=== PATIENT | female | born 1945 | race Caucasian/White ===

== ENCOUNTER → 2016-07-06 | Outpatient (CLI) | payer OTHER | LOC: BHFA 15:00 | PROVIDERS: ATTEND Internal Medicine Interventional Cardiology | DX: I25.10 Atherosclerotic heart disease of native coronary artery without angina pectoris (principal) ==

== ENCOUNTER → 2016-07-12 | Outpatient (CLI) | payer OTHER | LOC: BHFA 11:30 | PROVIDERS: ATTEND Internal Medicine Interventional Cardiology | DX: I25.10 Atherosclerotic heart disease of native coronary artery without angina pectoris (principal) ==

== ENCOUNTER 2017-02-02 02:22 | Observation (INO) | payer OTHER ==
[2017-02-02] MEDS ORDERED: NS 500 ML IV ONE (02:37)
[2017-02-02] MEDS ORDERED: ASPIRIN 81 MG CHEWABLE TAB PO ONE (02:37)
--- NOTE | 2017-02-02 02:41 | CPEKG ---
Heart Rate: 47 RR Interval: 1277 P-R Interval: 176 QRSD Interval: 90 QT Interval: 476 QTC Interval: 421 P Ather[place]: 71 QRS [place]: 54 T Wave A[place]: 5 EKG Severity - ABNORMAL ECG - EKG Impression: SINUS BRADYCARDIA EKG Impression: PROBABLE LEFT ATRIAL ABNORMALITY EKG Impression: ABNORMAL T, CONSIDER ISCHEMIA, ANT-LAT LEADS Electronically Signed By: Aris Alexandre 04-Feb-2017 13:56:53
[2017-02-02] MEDS ORDERED: HYDROmorphONE/DILAUDID 1 MG/ML INJ IVP ONE (02:45)
--- NOTE | 2017-02-02 02:46 | EDPHY ---
H & P Stated Complaint: c/o severe R lower back pain, concerned cardiac related HPI/ROS: HPI CHIEF COMPLAINT: Severe right low back pain. HISTORY OF PRESENT ILLNESS: This patient very pleasant 71-year-old female she presents emergency room with right fall are low lateral back pain that is described as sharp stabbing. There is no midline back pain. She denies any chest pain or shortness of breath. Denies nausea. Pain is located right CVA region. She states she was sleeping and woke up at 1:00 a.m. with severe pain sharp stabbing it does radiate a little bit around her right CVA to right abdomen. Does not go down her leg. She has no saddle anesthesia. No fever. No trauma. No midline lumbar pain. She denies any urinary symptoms. She decided come to the emergency room as she was concerned this may be cardiac related cause her history is cardiac in nature and she has 2 stents in her LAD. With both stent placed she did have some chest discomfort. She never had low back pain with that. Upon arrival to the emergency room her only complaint is right CVA pain sharp stabbing radiates to her right abdomen. Past Medical History: Coronary artery disease with 2 stents. Past Surgical History: PTCA. Social History: Denies drugs alcohol tobacco. Family History: Noncontributory. ROS REVIEW OF SYSTEMS: A comprehensive 10 point review of systems is otherwise negative aside from elements mentioned in the history of present illness. Exam Constitutional appears uncomfortable, triage nursing summary reviewed, vital signs reviewed, awake/alert. Vital signs reviewed. Bradycardic. Eyes normal conjunctivae and sclera, EOMI, PERRLA. HENT normal inspection, atraumatic, moist mucus membranes, no epistaxis, neck supple/ no meningismus, no raccoon eyes. Respiratory clear to auscultation bilaterally, normal breath sounds, no respiratory distress, no wheezing. Cardiovascular bradycardic, regular rhythm, no murmur, no edema, distal pulses normal. Gastrointestinal soft, non-tender, no rebound, no guarding, normal bowel sounds, no distension, no pulsatile mass. Genitourinary no significant right CVA tenderness but this is where she has pain. Musculoskeletal no midline vertebral tenderness, full range of motion, no calf swelling, no tenderness of extremities, no meningismus, good pulses, neurovascularly intact. Skin pink, warm, & dry, no rash, skin atraumatic. Neurologic awake, alert and oriented x 3, AAOx3, moves all 4 extremities equally, motor intact, sensory intact, CN II-XII intact, normal cerebellar, normal vision, normal speech. Psychiatric normal mood/affect. Heme/Lymph/Immune no lymphadenopathy. Differential Diagnosis: Includes but is not limited to in a particular order, UTI, hydronephrosis, hydroureter, kidney stone, pyelonephritis, disc herniation , annular tear, compression fracture, nerve root compression. Aortic dissection. Doubt acute coronary syndrome. 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 Check urinalysis for blood. CT scan abdomen pelvis without contrast to delineate this right low flank pain. Abdominal labs. Gentle IV hydration and re- evaluation. Re-evaluation: EKG interpretation by me on record in TRAN.SL system. Impression time of EKG 2:27 a.m., this is sinus bradycardic rate of 47 subtle T-wave abnormality inferior leads to 3 AVF deep T-wave inversions V4 V5 V6. T-wave flattening in the lateral leads 1 aVL. When I compare this EKG to her old EKG dated 1 I compare this to EKG dated 02/25/2010 very similar morphology. I do not appreciate acute new changes on this EKG today. 0508: This patient CT scan without contrast shows a 2.5 mm kidney stone at the right UVJ. Shows severe hydronephrosis also rupture of the renal Pelvis. UROMA. 0508: At this time I did re-evaluate she somewhat comfortable but does have nausea and some mild back pain. Given her age, cardiac risk factors, ongoing flank pain with nausea severe hydronephrosis with an obstructing distal stone I do recommend that she gets admitted to the hospital for pain control nausea control and for Urology to consult. Additionally her urinalysis is not clean I have low suspicion for infection but I have ordered her urine culture and IV Rocephin in case this is infected. Will admit to the hospitalist service. 0517: I have consult Urology Dr. Abrams. She will see in consult the patient. 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 psh- cardiac stent 2006, hernia surg, bilat wrist surg, surg L thumb x 2, surg L knee - Social History Smoking Status: Never smoked Constitutional: Initial Vital Signs Heart Rate 48 L 02/02/17 02:24 Respiratory Rate 18 02/02/17 02:24 Blood Pressure 163/96 H 02/02/17 02:24 O2 Sat (%) 95 02/02/17 02:24 O2 Delivery Mode Room Air Allergies/Adverse Reactions: No Known Allergies Allergy (Verified 02/02/17 02:31) Home Medications: Medication Instructions Recorded Alirocumab [Praluent Pen] 75 mg SQ Q14D 02/02/17 Aspirin [Aspirin 81mg (*)] 81 mg PO HS 02/02/17 Carvedilol Cr [Coreg Cr] 10 mg PO HS 02/02/17 Denosumab [Prolia] 60 mg SQ .H5IAMIES 02/02/17 Ezetimibe [Zetia 10 MG (*)] 10 mg PO HS 02/02/17 Herbals/Supplements -Info Only 1 ea PO DAILY 02/02/17 Multivitamins [Multivitamin (*)] 1 each PO DAILY 02/02/17 [place]-3 Fatty Acids [Fish Oil 1000 1,000 mg PO HS 02/02/17 mg (*)] Ramipril [Altace 5mg (*)] 5 mg PO DAILY 02/02/17 Rosuvastatin Calcium [Crestor 40mg 40 mg PO HS 02/02/17 (*)] Tamsulosin HCl [Flomax 0.4 MG (*)] 0.4 mg PO DAILY #30 cap 02/02/17 Ticagrelor [Brilinta] 90 mg PO BID 02/02/17 cycloSPORINE 0.05% [Restasis Opht 1 drop EACHEYE BID 02/02/17 Drops(*)] Medical Decision Making - Data Points Laboratory Results: Laboratory Results 02/02/17 02:30 02/02/17 02:30 Microbiology Results: MICROBIOLOGY 02/02/17 02:50 Urine,Clean Catch Urine Culture - Preliminary Three [place] Types Medications Given: Discontinued Medications Aspirin (Aspirin) 324 mg PO EDNOW ONE Stop: 02/02/17 02:38 Last Admin: 02/02/17 03:19 Dose: Not Given Hydromorphone HCl (Dilaudid) 1 mg IVP EDNOW ONE Stop: 02/02/17 02:46 Last Admin: 02/02/17 02:57 Dose: 1 mg Sodium Chloride (Ns) 500 mls @ 1,000 mls/hr IV EDNOW ONE PRN Reason: Protocol Stop: 02/02/17 03:06 Last Admin: 02/02/17 02:57 Dose: 500 mls Ceftriaxone Sodium/Dextrose (Rocephin 1 Gm (Premix)) 50 mls @ 100 mls/hr IV EDNOW ONE PRN Reason: Protocol Stop: 02/02/17 04:52 Last Admin: 02/02/17 04:30 Dose: 50 mls Sodium Chloride (Ns) 1,000 mls @ 100 mls/hr IV CONT LISSA Stop: 08/01/17 05:29 Last Admin: 02/02/17 06:03 Dose: 1,000 mls Ondansetron HCl (Zofran) 4 mg IVP EDNOW ONE Stop: 02/02/17 03:01 Last Admin: 02/02/17 03:09 Dose: 4 mg Tamsulosin HCl (Flomax) 0.4 mg PO EDNOW ONE Stop: 02/02/17 05:16 Last Admin: 02/02/17 05:40 Dose: 0.4 mg Ticagrelor (Brilinta) 90 mg PO BID [facility] Stop: 08/01/17 10:14 Last Admin: 02/02/17 11:50 Dose: Not Given Departure - Departure Disposition: [facility] Acute Clinical Impression: Urinary tract obstruction by kidney stone, Flank pain Condition: Good
[2017-02-02 02:48] LABS: % IMMATURE GRANULYOCYTES 0.2 % (0.0-1.1); ABSOLUTE IMMATURE GRANULOCYTES 0.01 10^3/uL (0.00-0.10); ADD DIFF? NO; ADD MORPH? NO; ADD SCAN? NO; ATYPICAL LYMPHOCYTE FLAG 0 (0-99); FRAGMENT RBC FLAG 0 (0-99); HEMATOCRIT 41.4 % (38.0-47.0); HEMOGLOBIN 14.8 g/dL (12.6-16.3); LEFT SHIFT FLG 0 (0-99); LIPEMIA HEMOLYSIS FLAG 90 (0-99); MEAN CELL HEMOGLOBIN 32.5 pg (27.9-34.1); MEAN CELL HEMOGLOBIN CONCENTR. 35.7 g/dL (32.4-36.7); MEAN CELL VOLUME 90.8 fL (81.5-99.8); MEAN PLATELET VOLUME 10.3 fL (8.7-11.7); PLATELET CLUMPS FLAG 0 (0-99); PLATELET COUNT 145 10^3/uL (150-400); RED BLOOD CELL COUNT 4.56 10^6/uL (4.18-5.33)
[2017-02-02 02:59] LABS: INR 0.94 (0.83-1.16); PROTIME(PATIENT) 12.5 SEC (12.0-15.0)
[2017-02-02] MEDS ORDERED: ONDANSETRON 4 MG/2 ML VIAL ONE (02:59)
[2017-02-02 03:00] LABS: ALANINE AMINOTRANSFERASE 58 IU/L (9-52); ALBUMIN 4.2 g/dL (3.5-5.0); ALKALINE PHOSPHATASE 43 IU/L (38-126); ANION GAP 14 mEq/L (8-16); APTT 26.7 SEC (23.0-38.0); ASPARTATE AMINOTRANSFERASE 41 IU/L (14-46); BILIRUBIN,TOTAL 0.4 mg/dL (0.1-1.4); BILIRUBIN-UNCONJUGATED 0.4 mg/dL (0.0-1.1); CALCIUM 9.2 mg/dL (8.5-10.4); CARBON DIOXIDE 24 mEq/l (22-31); CHLORIDE 104 mEq/L (97-110); CREATININE 0.8 mg/dL (0.6-1.0); GLOMERULAR FILTRATION RATE > 60; GLUCOSE 102 mg/dL (70-100); MAGNESIUM 2.2 mg/dL (1.6-2.3); POTASSIUM 3.7 mEq/L (3.5-5.2); SODIUM 142 mEq/L (134-144); TOTAL PROTEIN 6.1 g/dL (6.3-8.2)
[2017-02-02] MEDS ORDERED: ONDANSETRON 4 MG/2 ML VIAL IVP ONE (03:00)
[2017-02-02 03:01] LABS: COLOR YELLOW; LEUKOCYTE ESTERASE,URINE 1+ (NEGATIVE); NITRITE,URINE NEGATIVE (NEGATIVE)
[2017-02-02] MEDS ORDERED: HYDROmorphONE/DILAUDID 1 MG/ML INJ ONE (03:03)
[2017-02-02 03:12] LABS: CK-MB INTERPRETATION NEGATIVE (NEGATIVE); TROPONIN I < 0.012 ng/mL (0.000-0.034)
[2017-02-02 03:12] LABS: MUCUS 2+ /lpf (NONE-1+)
[2017-02-02 03:20] LABS: CREATINE KINASE-MB FRACTION 4.11 ng/mL (0.00-3.19)
[2017-02-02] MEDS ORDERED: TAMSULOSIN HCL 0.4 MG CAP PO ONE (05:15)
[2017-02-02] MEDS ORDERED: NS 1,000 ML IV SCH ×2 (05:30→07:00)
[2017-02-02 05:43] LABS: COLOR YELLOW; LEUKOCYTE ESTERASE,URINE NEGATIVE (NEGATIVE); NITRITE,URINE NEGATIVE (NEGATIVE)
[2017-02-02 05:53] LABS: MUCUS 1+ /lpf (NONE-1+); RBC,URINE 50-182 /hpf (0-3)
[2017-02-02 06:28] VITALS: RESP 18; TEMP 97.6
[2017-02-02] MEDS ORDERED: ONDANSETRON 4 MG/2 ML VIAL IVP PRN (06:59)
[2017-02-02] MEDS ORDERED: ACETAMINOPHEN 325 MG TAB PO PRN (06:59)
[2017-02-02] MEDS ORDERED: HYDROmorphONE/DILAUDID 1 MG/ML INJ IVP PRN (06:59)
[2017-02-02] MEDS ORDERED: HYDROCODONE/APAP 5/325 TAB PO PRN (06:59)
[2017-02-02 08:49] VITALS: BP 101/55; PULSE 60; O2SAT 92
--- NOTE | 2017-02-02 10:02 | GHP ---
[f rep st] HISTORY AND PHYSICAL DATE OF ADMISSION: 02/02/2017 SOURCE: Patient provides history, appears reliable. Case discussed with ED provider and EMR nestor wong CHIEF COMPLAINT: Right flank pain. HISTORY OF PRESENT ILLNESS: This is a very pleasant 71-year-old female with past medical history sig nificant for coronary artery disease, hyperlipidemia, hypertension, who presents to the emergency dep artment today with sudden onset of right flank and back pain starting at 0100. Patient was woken by sharp, stabbing, persistent pain. Patient found it very difficult to ambulate. She denies any fever s, chills, nausea, vomiting, chest pain, or shortness of breath. The patient denies any dysuria, hem aturia. No sick contacts. No previous history of nephrolithiasis. REVIEW OF SYSTEMS: GENERAL: Negative for fevers, chills. SKIN: No rashes or sores. ENT: No madison estion or sore throat. EYES: No acute changes in vision or ocular pain. CV: No chest pain or palp itations. RESPIRATORY: No shortness of breath or cough. GI: No nausea, vomiting, diarrhea. : No dysuria or hematuria. MUSCULOSKELETAL: Patient denies any complaints of myalgias or joint pain. She has had a recent surgery on her left hand and wrist. NEURO: Patient denies any complaints of h eadache, numbness, tingling. PSYCH: Negative. Remainder of review of systems negative, except as noted above. ALLERGIES: No known drug allergies. HOME MEDICATIONS: Restasis 1 drop each eye b.i.d., Prolia 60 mg subcu every 6 months, omega-3 fish o il 1000 mg p.o. at h.s., multivitamin 1 tab p.o. daily, aspirin 81 mg p.o. at h.s., Praluent 75 mg laureano bcu every 14 days, Crestor 40 mg p.o. at h.s., ramipril 5 mg p.o. daily, Zetia 10 mg p.o. h.s., Coreg 10 mg p.o. h.s., and Brilinta 90 mg p.o. b.i.d. PAST MEDICAL HISTORY: Significant for CAD, hypertension, hyperlipidemia, osteoporosis. PAST SURGICAL HISTORY: Significant for cardiac cath with 2 stents to the LAD, history of hernia repa ir, bilateral wrist surgery, ORIF on the right wrist and left tendon transfer on the left, left thumb surgery recently, and left knee surgery, tonsillectomy, and adenoidectomy. FAMILY HISTORY: Father with history of CAD, at age 50. Sister also with history of CAD. SOCIAL HISTORY: Patient is , lives with her , several adult children. She does not sm rohit, drink, or do drugs. CODE STATUS: Full. Patient's is MD RUBIO if needed. PHYSICAL EXAMINATION: VITAL SIGNS: Upon arrival to the emergency department, blood pressure is 163/ 96. Heart rate is 48, respiratory rate 18, O2 saturation 95% on room air. Vitals available at time of interview: Blood pressure 112/65, heart rate 58, respiratory rate 18. O2 saturation is 94% on niecy m air, with a temperature of 36.4. GENERAL: No acute distress. Very pleasant adult female, appears younger than stated age, is sitting up in rney, appears comfortable. at bedside. HEAD: Normocephalic, atraumatic. EYES: Extraocular muscles are intact. Pupils equal, round, slightly dec reased reactivity to light bilaterally but symmetric. No scleral icterus or conjunctival injection. ENT: Mucous membranes appear slightly dry. No oropharyngeal erythema or exudates. NECK: Supple. Trachea midline. CV: Regular rate and rhythm. No murmurs, rubs, or gallops appreciated. RESPIRATO RY: Lungs are clear to auscultation bilaterally. No wheezes, rales, or rhonchi. Unlabored breathin g. ABDOMEN: Positive bowel sounds. Soft, nontender to palpation. No rebound, guarding, or masses appreciated. : No suprapubic tenderness to palpation. No CVA tenderness at time of my evaluation , which has resolved. No Barnes in place. EXTREMITIES: Patient without any cyanosis, clubbing, or e veronika. Patient with 1+ pedal pulses bilaterally and symmetric. She is able to sit up independently. Her left wrist is in a splint. NEUROLOGIC: Cranial nerves 2-12 intact, symmetric bilaterally. Patient is awake, alert, and oriente d x4. Moves all extremities. PSYCH: The patient's thought process, content and questions are appro priate. She is pleasant and in good spirits. LABORATORY STUDIES: WBC is 5.35. H and H are 14.8 and 41.4. MCV is 90.8. Platelet count is 145. No bands. Sodium is 142, potassium 3.7, chloride 104, CO2 24, BUN 21, creatinine 0.8, GFR of greater than 60, glucose 102, calcium 9.2, magnesium 2.2, total bilirubin 0.4, ALT 58, AST 41, alkaline phos phatase 43. CK is 222. CK-MB is 4.11. Troponin is negative. BTNP is 98. Total protein 6.1, album in 4.2. Lipase is 152. UA: Clean catch was obtained, and straight cath was repeated, with a pH of 6.0, specific gravity 1.018, 3+ blood, RBCs 50-180 on a clean-catch patient, 1+ leukocyte esterase, 5 -10 RBCs, 5-10 WBCs, and 2+ mucus. EKG reviewed by me shows sinus bradycardia with T-wave inversions in the inferolateral leads. No com parison EKGs. There are no acute ST elevations, and QTc is 421. Chest x-ray: Image report reviewed, negative for any acute abnormality, possible hyperexpansion sugg esting airway disease. CT abdomen and pelvis showing severe right hydronephrosis secondary to 2 x 5 x 2 x 5 x 3 m m stone in the right UVJ. Mild associated urinoma in the right retroperitoneum suggestive of a recen tly ruptured calyx. Also, some other punctate right nephrolithiasis. Suspect small left parapelvic cysts. 1.5 x 1.5 cm nodular thickening in the inferior left adrenal gland with recommendation for 3-[address] followup. Mild constipation. Mild multilevel circumferential disk bulges, most p ronounced at L2-3, with some moderate disk space narrowing and mild central canal stenosis. ASSESSMENT AND PLAN: A pleasant 71-year-old female presents with sudden onset of right flank pain. 1. Nephrolithiasis with ureteral obstruction, which is quite severe. Urology was consulted from the emergency department with plans to assess and likely take the patient to the OR. The patient has re ceived Flomax, IV fluids, and pain control with Dilaudid. She will be n.p.o. at this time pending Ur ology recommendations. The patient received a dose of Rocephin in the emergency department, currentl y afebrile. No leukocytosis. Does not meet sepsis criteria. Antibiotics with adequate coverage for the next 24 hours. Urine culture is pending. Further antibiotic therapy as per urology. 2. Flank pain. Pain currently controlled status post a dose of Dilaudid. Will leave p.r.n. while n .p.o. 3. Urinoma with likely calyceal rupture, as per Urology. 4. Left adrenal nodule with recommendations for outpatient followup study in 3-6 months. 5. Coronary artery disease. Hold the patient's aspirin at this time pending further intervention. She denies any chest pain. Cardiac enzymes are negative. No acute findings on EKG, but I am unable to obtain a comparison EKG regarding patient's T-wave changes, but she denies any chest pain at this time. Hold off on Brilinta perioperatively for now. 6. Hyperlipidemia. When patient's diet is advanced, okay to advance her statin, Zetia, and fish oil . 7. Osteoporosis. She receives outpatient infusions. 8. Fluid, electrolytes, nutrition: IV fluids for supplemental hydration. Patient does appear dehyd rated and will be n.p.o. at this time. Electrolyte replacement p.r.n. 9. Prophylaxis: SCDs, holding anticoagulation, aspirin, Brilinta, preoperatively. Resume postopera tively. 10. Code status is full. Patient's is MD RUBIO if needed. 11. Disposition: Patient has been admitted to observation status on the medical floor pending inter vention and recommendations from Urology. The patient may possibly be discharged later in the [facility] if she does well and is stable. /[id number]/MODL
[2017-02-02] MEDS ORDERED: NON-FORMULARY NEW DRUG (Denosumab [Prolia] 60 MG) SQ SCH (10:15)
[2017-02-02] MEDS ORDERED: TICAGRELOR 90 MG TAB PO SCH (10:15)
--- NOTE | 2017-02-02 10:18 | PDDCSUM ---
Discharge Summary Discharge Summary: DISCHARGE DIAGNOSES: -acute right ureteral colic, severe right hydronephrosis, obstructing right kidney stone -2 small right renal stones nonobstructing -incidentally identified 1.5 cm nodule of left adrenal gland, asymptomatic CONSULTANTS: of Urology PROCEDURES: CT scan kidney stone protocol HOSPITAL COURSE SUMMARY: This patient came in with right ureteral colic without fever and some hematuria. She was identified as having a right renal stone with obstructing hydronephrosis. There is no evidence of infection. The patient was treated with analgesics and hydration and she actually passed the stone which we were able to obtain on screening. This will be sent for identification. At this point the patient is asymptomatic and with no signs of any complications and is stable for discharge from the hospital. She is instructed to keep well hydrated on a daily basis for the rest of her life, and to watch for symptoms of any recurring stones. She is prescribed Flomax for the initial period to help resolve her hydronephrosis ureteral changes. She will follow up in clinic with . In addition she has incidentally identified as having a 1.5 cm asymptomatic adrenal nodule on her CT scan. This is on the left. The patient has been informed and they will have follow-up outpatient CT scanning for stability PENDING TEST RESULTS: Kidney stone identification MEDICATION CHANGES: Addition of Flomax 0.4 mg daily FOLLOW-UP PLAN: Follow up with Dr. Yepez Greater than 35 minutes bedside and care coordination time today
--- NOTE | 2017-02-02 10:34 | PDCONSULT ---
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 Pain started acutely yesterday. She thought she was having a heart attack. CT in ER performed, I personally reviewed the images as discussed below: CT noncon abd/pel - Right 2.5mm distal ureteral stone, associated hydronephrosis , hydroureter, right kidney edematous with perinepheric fluid collection, suspect calyceal rupture. Small 1.5mm nonobs stone right kidney as well. Left adrenal w 1.5cm nodule. She passed the stone about 45m ago, has had no pain and currently feeling well. Her UA straight cath is not suspicious for infection. Her serum WBC is normal. Her vitals have been stable. She does have a hx of HTN well managed on meds. Also hot flashes. ROS: Negative head ache, Negative palpitations, Negative runny nose, Negative cough, Negative abdominal pain, Negative back pain, +hot flashes, Negative dysuria, negative joint pain, no lymphadenopathy PMH: CAD s/p stent, HTN, HDL, osteoporosis, hernia repair, wrist surgery, knee surgery FH: Father CAD SH: , nonsmoker AFVSS Gen NAD A&O appears well CV regular rate Lunge normal effort Abd soft, nontender, nondistended Back no CVA tenderness Ext no edema Labs: WBC 5.3, Hgb 14.8 Cr 0.8 K 3.7 UA straight cath - WBC 1-3, RBC 50+ CT images personally reviewed - as stated in HPI A/P 71F w recent passage of a stone corresponding to distal stone seen on CT scan last night, punctate stone right kidney, and left adrenal nodule. She is OK for DC from Urology standpoint and can certainly go on a plane and on her cruise for the holiday. She has passed the stone causing her all her discomfort. The calyceal rupture can happen with a stone is severely obstructing, and is actually a positive outcome as this releases the pressure on the renal parenchyma and helps to relieve the pain. The kidney will recover on its own and the surrounding fluid reabsorb. The urine is not infected, so no further abx is needed. She has received rocephin while in house which is very good coverage. I do recommend her to drink 2-3L per day and take flomax x 7 days, just to help relax the ureter while it recovers from the hydronephrosis. If any Side effects from flomax, she can stop. Follow up in 6 weeks for metabolic stone analysis w 24H urine. Regarding the left adrenal, will obtain adrenal labs and contrast CT to evaluate whether this is a secreting nodule. She does have HTN and hot flashes , so work up is appropriate. Will obtain all of this prior to her visit w me in clinic. It was a pleasure seeing her and I appreciate the consultation. Casi Yepez MD Urology, [facility]
--- NOTE | 2017-02-02 15:43 | ASDISCHSUM ---
Discharge Information Plan Status: Medically Cleared to Leave: Discharge Date:02/02/2017 11:40 AM CM D/C Disposition: ADT D/C Disposition:Home, Routine, Self-Care Projected Discharge Date:02/02/2017 11:40 AM Transportation at D/C: Discharge Delay Reason: Follow-Up Date:02/02/2017 11:40 AM Discharge Slot: Final Diagnosis: Placement Information Patient Contact Information Contact Name:GURPREET Relationship: Address:[address] City:[place] Alternate Phone: State/Zip Code:[place] [address] Email: Financial Information Financial Class: Primary Plan Desc:MEDICARE OUTPATIENT Primary Plan Number:[id number] Secondary Plan Desc:[facility] [place] Secondary Plan Number:[id number] Assessment Information Intervention Information Intervention Type:*BAGLEY-Signed Date of Service:02/02/2017 09:37 AM Patient Type:Observation Staff Member:Maria Del Carmen Altman Hours: Discipline: Severity: Comment:
[2017-02-02] MEDS ORDERED: ASPIRIN 81 MG CHEWABLE TAB PO SCH (21:00)
[2017-02-02] MEDS ORDERED: EZETIMIBE 10 MG TAB PO SCH (21:00)
[2017-02-02] MEDS ORDERED: OMEGA-3 FATTY ACIDS 1,000 MG CAP PO SCH (21:00)
[2017-02-02] MEDS ORDERED: CARVEDILOL CR 10 MG CAP PO SCH (21:00)
[2017-02-02] MEDS ORDERED: ROSUVASTATIN CALCIUM 40 MG TAB PO SCH (21:00)
[2017-02-02] MEDS ORDERED: cycloSPORINE 0.05% 30 DROPERETTE/BOX EACHEYE SCH (21:00)
[2017-02-03] MEDS ORDERED: RAMIPRIL 5 MG CAP PO SCH (09:00)
[2017-02-03] MEDS ORDERED: MULTIVITAMINS 1 EACH TAB PO SCH (09:00)
[2017-02-06 13:37] LABS: SOURCE OF STONE KIDNEY STONE
[2017-02-06 13:39] LABS: NIDUS NOT OBSERVED
== END 2017-02-02 11:40 | disposition home or self-care (01) ==
LOC: F1N 06:19
PROVIDERS: ADMIT Family Medicine; ATTEND Family Medicine
DX: N23 Unspecified renal colic (principal); N13.30 Unspecified hydronephrosis; N20.0 Calculus of kidney; Z95.5 Presence of coronary angioplasty implant and graft
CPT/HCPCS: 71010; 74176; 93005; G0378; J0696; J1170; J2405; 82365-90

== ENCOUNTER 2017-08-07 17:26 | Emergency (ER) | payer OTHER ==
--- NOTE | 2017-08-07 17:42 | EDPHY ---
H & P Stated Complaint: fall on blood thinners Time Seen by Provider: 08/07/17 17:41 HPI/ROS: CHIEF COMPLAINT: Abdominal tenderness, pelvic bruising HISTORY OF PRESENT ILLNESS: The patient presents the ED for evaluation of abdominal tenderness and pelvic bruising. The patient is currently taking aspirin and Brilinta secondary to coronary artery disease. The patient reportedly fell yesterday. She sustained some superficial bruises to her arms or legs. She has been ambulatory. She has no significant complaints of extremity pain. The patient does complain of bruising over her left lower quadrant over her anterior superior iliac crest. REVIEW OF SYSTEMS: A comprehensive 10 point review of systems is otherwise negative aside from elements mentioned in the history of present illness. 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 psh- cardiac stent 2006, hernia surg, bilat wrist surg, surg L thumb x 2, surg L knee - Social History Smoking Status: Never smoked - Physical Exam Exam: General Appearance: Alert, no distress Head: Atraumatic Eyes: Pupils equal, round, reactive ENT, Mouth: No hemotympanum, no oral trauma Neck: Nontender, trachea midline Respiratory: No chest wall tender, no subcutaneous air, lungs clear bilaterally Cardiovascular: Regular rate and rhythm Abdomen: Bruising noted to the left lower quadrant, tenderness to palpation over left anterior superior iliac crest Skin: As above Back: No midline T/L/S pain Extremities: Nontender, full range of motion Constitutional: Initial Vital Signs Temperature (C) 37 C 08/07/17 17:36 Heart Rate 63 08/07/17 17:36 Respiratory Rate 16 08/07/17 17:36 Blood Pressure 152/86 H 08/07/17 17:36 O2 Sat (%) 96 08/07/17 17:36 O2 Delivery Mode Room Air Allergies/Adverse Reactions: risedronate sodium [From Actonel] Allergy (Verified 08/07/17 17:35) Home Medications: Medication Instructions Recorded Alirocumab [Praluent Pen] 75 mg SQ Q14D 02/02/17 Aspirin [Aspirin 81mg (*)] 81 mg PO HS 02/02/17 Carvedilol Cr [Coreg Cr] 10 mg PO HS 02/02/17 Denosumab [Prolia] 60 mg SQ [id number] 02/02/17 Ezetimibe [Zetia 10 MG (*)] 10 mg PO HS 02/02/17 Herbals/Supplements -Info Only 1 ea PO DAILY 02/02/17 Multivitamins [Multivitamin (*)] 1 each PO DAILY 02/02/17 [place]-3 Fatty Acids [Fish Oil 1000 1,000 mg PO HS 02/02/17 mg (*)] Ramipril [Altace 5mg (*)] 5 mg PO DAILY 02/02/17 Rosuvastatin Calcium [Crestor 40mg 40 mg PO HS 02/02/17 (*)] Ticagrelor [Brilinta] 90 mg PO BID 02/02/17 cycloSPORINE 0.05% [Restasis Opht 1 drop EACHEYE BID 02/02/17 Drops(*)] Medical Decision Making - Diagnostics Imaging Results: Imaging Impressions Abdomen CT 08/07/17 18:31 Impression: 1. Small chip avulsion fracture, nondisplaced, arising from the anterior aspect of the mid left iliac wing, with mild adjacent soft tissue hemorrhage. 2. No evidence of visceral injury within the abdomen or pelvis. 3. 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 Results called to Dr. Foreign Hoskins at 7:10 PM. ED Course/Re-evaluation: The patient presents to the ED for evaluation of abdominal wall pelvic trauma in the setting of a fall yesterday. She was noted to have ecchymosis on her abdominal wall which prompted CT imaging of the abdomen pelvis. The patient has no evidence of an intra-abdominal injury. She does have a very small avulsion fracture off the iliac crest. She has some mild soft tissue swelling without any appreciable rectus sheath hematoma. The patient has been informed that these are benign injuries which should be self-limited. The patient otherwise is well-appearing and ambulatory with a normal extremity exam. The patient has been advised to ice her area of discomfort. She can use Tylenol as needed for pain. I reviewed the patient's workup in the emergency department with her at 7:20 a.m. and re-examined her. She remains neurologically intact with a benign abdominal exam. Differential Diagnosis: Differential diagnosis considered includes pelvic fracture, intra-abdominal injury, rectus sheath hematoma, retroperitoneal hemorrhage - Data Points Laboratory Results: 08/07/17 18:19 POC Hgb 12.6 gm/dL gm/dL (12.6-16.3) POC Hct 37 % L % (38-47) POC Sodium 140 mEq/L mEq/L (135-145) POC Potassium 4.0 mEq/L mEq/L (3.3-5.0) POC Chloride 104 mEq/L mEq/L (97-110) POC BUN 16 mg/dL mg/dL (7-23) POC Creatinine 0.7 mg/dL mg/dL (0.6-1.0) POC Glucose 77 mg/dL mg/dL (70-100) Point of Care Test Results: 08/07/17 18:19 POC Sodium 140 POC Potassium 4.0 POC Chloride 104 POC BUN 16 POC Creatinine 0.7 POC Glucose 77 Departure - Departure Disposition: Home, Routine, Self-Care Clinical Impression: Pelvic avulsion fracture, Traumatic ecchymosis of abdominal wall Condition: Good Instructions: Contusion in Adults (ED) Additional Instructions: 1. Tylenol as needed for pain. 2. Ice and 20-30 minutes at a time 4 to 5 times a day for the next several days. 3. Please return to the ED for markedly worsening symptoms or other concerns. Referrals: GABRIEL TREVINO [Primary Care Provider] - As per Instructions
[2017-08-07] MEDS ORDERED: IOPAMIDOL (ISOVUE-300) 100 ML BTL ONE (18:34)
[2017-08-07 19:50] VITALS: BP 139/79
== END 2017-08-07 19:49 | disposition home or self-care (01) ==
DX: S32.315A Nondisplaced avulsion fracture of left ilium, initial encounter for closed fracture (principal); S30.1XXA Contusion of abdominal wall, initial encounter; I10 Essential (primary) hypertension; Z79.82 Long term (current) use of aspirin; Z95.5 Presence of coronary angioplasty implant and graft; W18.39XA Other fall on same level, initial encounter; Y99.8 Other external cause status
CPT/HCPCS: 74177; 99285; Q9967; 82947-QW

== ENCOUNTER → 2018-02-22 | Outpatient (CLI) | payer OTHER | LOC: BHFA 11:30 | PROVIDERS: ATTEND Internal Medicine | DX: I25.10 Atherosclerotic heart disease of native coronary artery without angina pectoris (principal) ==

== ENCOUNTER → 2018-04-08 | Outpatient (CLI) | payer OTHER | LOC: BMCIMAGING 09:28 | PROVIDERS: ATTEND Family Medicine | DX: R05 Cough (principal); J40 Bronchitis, not specified as acute or chronic ==